=== PATIENT | female | born 1990 | race Caucasian/White ===

== ENCOUNTER 2024-07-05 08:03 | Emergency (ER) | payer OTHER, SELFPAY ==
[2024-07-05 08:11] VITALS: BP 121/73; PULSE 91; RESP 16; TEMP 36.6; O2SAT 100
--- OUTSIDE RECORDS SUMMARY | 2024-07-05 08:17 | XMS_ITS | Clinical Summary ---
Author Organization [facility] Address [address] [place] [address] Phone Care Team Providers Care Sewing Machine Operator Paper Bags Name Role Phone PADMINI CHO MD Primary Care Provider [phone] Reason for Visit and Chief Complaint NEW OB EXAM ESTABLISHED PATIENT Problems Includes: Problems addressed during this encounter and other active Problems Current Visit Onset Date Resolved Date Provider Stephanie n Status History of Abnormal Pap Smear 07/15/2021 Unknown ERICAKAITLIN RITCHIE WHNP-BC Resolved Last Documented On 03/04/2022 9:13AM ; [facility] Note: was Closed. History of Breast Disorders 07/15/2021 Unknown ERICAKAITLIN RITCHIE WHNP-BC Resolved Last Documented On 03/04/2022 9:13AM ; [facility] Note: was Closed. 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 History of Diabetes Mellitus 07/15/2021 Unknown ERICAKAITLIN RITCHIE WHNP-BC Resolved Last Documented On 03/04/2022 9:13AM ; [facility] Note: was Closed. History of Essential Hypertension 07/15/2021 Unknown ERICA A RITCHIE WHNP-BC Resolved Last Documented On 03/04/2022 9:13AM ; [facility] Note: was Closed. History of Heart Disease 07/15/2021 Unknown ERICAKAITLIN RITCHIE WHNP-BC Resolved Last Documented On 03/04/2022 9:13AM ; [facility] Note: was Closed. Reported Previous Std 07/15/2021 Unknown ERICAKAITLIN RITCHIE WHNP-BC Resolved Last Documented On 03/04/2022 9:13AM ; [facility] Note: was Closed. Respiratory Disorders 07/15/2021 Unknown ERICA RITCHIE WHNP-BC Resolved Last Documented On 03/04/2022 9:13AM ; [facility] Note: was Closed. 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 ERICA RITCHIE WHNP-BC Active Last Documented On 03/17/2017 10:53AM ; [facility] Note: H/O type I Plan of Treatment No Plan of Treatment Recorded Assessments Includes: Assessments from this encounter No Assessments Recorded Medical Equipment - Implanted Devices Includes: Current Devices No Medical Equipment Recorded Medications Includes: Medications discussed during this encounter and other current Medications Current Medications (continue as prescribed) [facility] Omeprazole 20 MG Oral Ta blet Delayed Release Disintegrating 06/20/2021 Provider: Diagnosis: Last Documented On 06/20/2021 11:06AM By Teresa Anguiano MA ; [facility] GNP 28-0.8 MG Oral Tablet 06/20/2021 Provid er: Diagnosis: Last Documented On 06/20/2021 11:06AM By Teresa Anguiano MA ; [facility] Medications Administered Includes: Administered Medications from this encounter No Administered Medications Recorded Vital Signs Includes: Vital Signs from this encounter Vital Name 07/15/2021 08:23A Blood Pressure Sitting (mmHg) 104/62 Temp-Temporal 98.7 Height (in) 65 Weight (lb) 173 Body Mass Index (kg/m2) 28.8 Body Surface Area (m2) 1.9 Last Documented: On 07/15/2021 9:10AM ; [facility] Results Includes: Results discussed during this encounter No Results Recorded For Specified Dates History of Present Illness Includes: History of Present Illness from this encounter ELHAM PAK is a 30 year old female. - Allergy list reviewed - Medication list reviewed Social History No Social History Recorded - Smoking Status Unknown Procedures and Surgical History Surgical History Last Updated History of surgery 07/15/2021 Last Documented On 2 9:10AM ; [facility] Medical History Includes: Medical History addressed during this encounter Description Last Updated History of Abnormal Pap Smear 07/15/2021 Last Documented On 2 9:10AM ; [facility] History of breast disorders 07/15/2021 Last Documented On 2 9:10AM ; [facility] History of congenital abnormality of kortney lucy 07/15/2021 Last Documented On 2 9:10AM ; [facility] History of heart disease 07/15/2021 Last Documented On 2 9:10AM ; [facility] Family History Includes: Family History addressed during this encounter No Family History Recorded Review of Systems Includes: Review of Systems from this encounter No Review of Systems Recorded Mental Status Includes: Mental Status from this encounter No Mental Status Recorded Functional Status Includes: Functional Status from this encounter No Functional Status Recorded Physical Exam Includes: Physical Exam from this encounter Allergies Includes: Active Allergies No Known Allergies Encounters Encounter Provider Location Date Check-In Time Check-Out Time Diagnosis NEW OB EXAM ESTABLISHED PATIENT TAB MENA MD [facility] 07/15/19 22 8:11AM 9:13AM Insurance Includes: Active Insurance Policies Plan Name Member ID Group # Subscriber Relationship Effect jomar Dates 1 - [facility] [id number] DANO PAK Self Clinical Notes Includes: Clinical Notes from this encounter No Clinical Notes Recorded
--- OUTSIDE RECORDS SUMMARY | 2024-07-05 08:17 | XMS_ITS | Clinical Summary ---
Author Organization [facility] Address [address] [place] [address] Phone Care Team Providers Care Chicken Stuffer Name Role Phone PADMINI CHO MD Primary Care Provider [phone] Reason for Visit and Chief Complaint RETURN OB EXAM Problems Includes: Problems addressed during this encounter and other active Problems Current Visit Onset Date Resolved Date Provider Barto n Status History of Abnormal Pap Smear 07/15/2021 Unknown ERICAKAITLIN RITCHIE WHNP-BC Resolved Last Documented On 03/04/2022 9:13AM ; [facility] Note: was Closed. History of Breast Disorders 07/15/2021 Unknown ERICA A RITCHIE WHNP-BC Resolved Last Documented On 03/04/2022 9:13AM ; [facility] Note: was Closed. 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 History of Heart Disease 07/15/2021 Unknown ERICA A RITCHIE WHNP-BC Resolved Last Documented On 03/04/2022 9:13AM ; [facility] Note: was Closed. 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 ERICAKAITLIN RITCHIE WHNP-BC Active Last Documented On 03/17/2017 10:53AM ; [facility] Note: H/O type I Plan of Treatment - Clinical summary provided to patient - Last Documented On 08/14/2021 9:52AM ; [facility] Pending Tests Order Diagnosis Results Due Ordering P rovider Ultrasound (OB) - U/S COMPLETE OB U/S >/= 14 WKS , SINGLE FETUS Encounter for other screening follow-up 08/14/21 ERICA A RITCHIE WHNP-BC Last Documented On 9:32AM ; [facility] Assessments Includes: Assessments from this encounter Findings - Routine checkup (6 - 42 wk) - Last Documented On 08/14/2021 9:52AM ; [facility] Medical Equipment - Implanted Devices Includes: Current Devices No Medical Equipment Recorded Medications Includes: Medications discussed during this encounter and other current Medications Current Medications (continue as prescribed) [facility] Omeprazole 20 MG Oral Ta blet Delayed Release Disintegrating 06/20/2021 Provider: Diagnosis: Last Documented On 06/20/2021 11:06AM By Teresa Anguiano MA ; [facility] GNP 28-0.8 MG Oral Tablet 06/20/2021 Provid er: Diagnosis: Last Documented On 06/20/2021 11:06AM By Teresa Anguiano MA ; [facility] Medications Administered Includes: Administered Medications from this encounter No Administered Medications Recorded Vital Signs Includes: Vital Signs from this encounter Vital Name 08/14/2021 09:41A Blood Pressure Sitting L 112/62 BP Cuff Size Regular Temp-Temporal 97.9 Weight (lb) 173 Last Documented: On 08/14/2021 9:52AM ; [facility] Results Includes: Results discussed during this encounter No Results Recorded For Specified Dates History of Present Illness Includes: History of Present Illness from this encounter No History of Present Illness Recorded Social History Description Last Updated Alcohol use occ 08/14/2021 Last Documented On 2 9:52AM ; [facility] Former smoker 08/14/2021 Last Documented On 2 9:52AM ; [facility] In monogamous relationship 08/14/2021 Last Documented On 2 9:52AM ; [facility] No travel 08/14/2021 Last Documented On 2 9:52AM ; [facility] Non-smoker 08/14/2021 Last Documented On 2 9:52AM ; [facility] Not using drugs 08/14/2021 Last Documented On 2 9:52AM ; [facility] Sexually active with 1 partners in the l ast year 08/14/2021 Last Documented On 2 9:52AM ; [facility] Smoking status : Current everyday smoker 08/14/2021 Last Documented On 2 9:52AM ; [facility] Social history changed 08/14/2021 Last Documented On 2 9:52AM ; [facility] Stopped smoking years ago 1 1/2 months a go. Stopped 08/14/2021 Last Documented On 2 9:52AM ; [facility] Procedures and Surgical History Surgical History Last Updated History of cholecystectomy 4-2-21, [facility] 0 08/14/2021 Last Documented On 2 9:52AM ; [facility] History of surgery cholecystectomy 08/14 Last Documented On 2 9:52AM ; [facility] Medical History Includes: Medical History addressed during this encounter Description Last Updated 1 08/14/2021 Last Documented On 2 9:52AM ; [facility] History of Abnormal Pap Smear 08/14/2021 Last Documented On 2 9:52AM ; [facility] History of breast disorders MGM breast c ancer 08/14/2021 Last Documented On 2 9:52AM ; [facility] 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 08/14/2021 Last Documented On 2 9:52AM ; [facility] History of heart disease PGF PGM MGF MGM ; FOB's dad PGF 08/14/2021 Last Documented On 2 9:52AM ; [facility] History of Pap smear done 03/18/2018 Last Documented On 2 9:52AM ; [facility] Last pap smear date 04/10/2021 2 Last Documented On 2 9:52AM ; [facility] LMP: 04/20/2021 08/14/2021 Last Documented On 2 9:52AM ; [facility] No exposure to a contagious disease 07/29 Last Documented On 2 9:52AM ; [facility] No recent change in medical history 07/29 Last Documented On 2 9:52AM ; [facility] Not using contraception 08/14/2021 Last Documented On 2 9:52AM ; [facility] Para 0 08/14/2021 Last Documented On 2 9:52AM ; [facility] Result: normal 08/14/2021 Last Documented On 2 9:52AM ; [facility] Sexually active 08/14/2021 Last Documented On 2 9:52AM ; [facility] Family History Includes: Family History addressed during [...] Location Date Check-In Time Check-Out Time Diagnosis RETURN OB EXAM ERICA RITCHIE [facility] 08/15/19 22 9:38AM 9:52AM Routine Checkup (6 - 42 Wk) Insurance Includes: Active Insurance Policies Plan Name Member ID Group # Subscriber Relationship Effect jomar Dates 1 - [facility] [id number] DANO PAK Self Clinical Notes Includes: Clinical Notes from this encounter No Clinical Notes Recorded
--- OUTSIDE RECORDS SUMMARY | 2024-07-05 08:17 | XMS_ITS | Clinical Summary ---
Author Organization [facility] Address [address] [place] [address] Phone Care Team Providers Care Manager Laboratory Name Role Phone PADMINI CHO MD Primary Care Provider [phone] Reason for Visit and Chief Complaint The Chief Complaint is: WWE, no c/o, she stopped smoking 1 1/2 months ago and they are trying to conceive. No new partners Problems Includes: Problems addressed during this encounter and other active Problems All Visits Onset Date Resolved Date Provider Condition S tatus Risk: Tobacco Use 03/18/2018 04/10/2021 ERICA RITCHIE WHNP -BC Resolved Last Documented On 1 9:49AM ; [facility] Herpes Simplex 03/17/2017 ERICA RITCHIE NP-BC Active Last Documented On 7 10:53AM ; [facility] Note: H/O type I Plan of Treatment - Clinical summary provided to patient - Last Documented On 04/10/2021 9:59AM ; [facility] Instructions to patient Instructions for patient : B reast Self Exam discussed Last Documented On 9:41AM ; [facility] Lose weight Last Documented On 9:43AM ; [facility] Education and Decision Aids were provided during visit for: Patient Education: Daily laura cium and vitamin D Last Documented On 9:41AM ; [facility] Patient Education: weight be aring exercise Last Documented On 9:41AM ; [facility] Assessments Includes: Assessments from this encounter Findings - NORMAL FEMALE EXAM [Z01.419 - Encounter for gynecological examination (general) (routine) without abnormal findings] - Last Documented On 04/10/2021 9:59AM ; [facility] Instructions Includes: Instructions from this encounter Instructions to patient Instructions for patient : B reast Self Exam discussed Last Documented On 1 9:41AM ; [facility] Lose weight Last Documented On 9:43AM ; [facility] Education and Decision Aids were provided during visit for: Patient Education: Daily laura cium and vitamin D Last Documented On 9:41AM ; [facility] Patient Education: weight be aring exercise Last Documented On 9:41AM ; [facility] Medical Equipment - Implanted Devices Includes: Current Devices No Medical Equipment Recorded Medications Includes: Medications discussed during this encounter and other current Medications Discontinued / Stopped on this date ERICA Stevens [facility]MA WHNP-BC on 04/08/2020 NuvaRing 0.12-0.015 MG/24HR Vaginal Ring Provider: ERICA RITCHIE WHNP-BC Diagnosis: Last Documented On 04/10/2021 9:46AM By Teresa Anguiano MA ; [facility] Current Medications (continue as prescribed) [facility] Omeprazole 20 MG Oral Ta blet Delayed Release Disintegrating 06/20/2021 Provider: Diagnosis: Last Documented On 06/20/2021 11:06AM By Teresa Anguiano MA ; [facility] GNP 28-0.8 MG Oral Tablet 06/20/2021 Provid er: Diagnosis: Last Documented On 06/20/2021 11:06AM By Teresa Anguiano MA ; [facility] Medications Administered Includes: Administered Medications from this encounter No Administered Medications Recorded Vital Signs Includes: Vital Signs from this encounter Vital Name 04/10/2021 09:44A 04/10/2021 09: 44A Temp-Oral (F) 97.2 Height (in) 65 Weight (lb) 172 Body Mass Index (kg/m2) 28.6 Body Surface Area (m2) 1.9 Blood Pressure Sitting L 102/64 BP Cuff Size Large Last Documented: On 04/10/2021 9:44AM ; [facility] On 04/10/2021 9:46AM ; [facility] Results Includes: Results discussed during this encounter No Results Recorded For Specified Dates History of Present Illness Includes: History of Present Illness from this encounter ELHAM PAK is a 30 year old female. - Allergy list reviewed - Medication list reviewed - Primary Care Provider: Dr Alegria Social History Description Last Updated Former smoker 04/10/2021 Last Documented On 1 9:59AM ; [facility] Stopped smoking years ago 1 1/2 months a go. Stopped 04/10/2021 Last Documented On 1 9:59AM ; [facility] Social history changed 04/10/2021 Last Documented On 1 9:59AM ; [facility] Alcohol use occ 04/10/2021 Last Documented On 1 9:59AM ; [facility] In monogamous relationship 04/10/2021 Last Documented On 1 9:59AM ; [facility] No travel 04/10/2021 Last Documented On 1 9:59AM ; [facility] Non-smoker 04/10/2021 Last Documented On 1 9:59AM ; [facility] Not using drugs 04/10/2021 Last Documented On 1 9:59AM ; [facility] Sexually active with 1 partners in the l ast year 04/10/2021 Last Documented On 1 9:59AM ; [facility] Smoking status : Current everyday smoker 04/10/2021 Last Documented On 1 9:59AM ; [facility] Procedures and Surgical History Includes: Procedures from this encounter Procedures Code Diagnosis Performing Provider Service L ocation Service Date low fat diet Last Documented On 1 9:43AM ; [facility] use of tobacco assessment performed 1000F Last Documented On 1 9:48AM ; [facility] history of cervical Pap smear 2017 34293 Last Documented On 1 9:48AM ; [facility] Cervical Pap Smear performed Q0091 Last Documented On 1 9:42AM ; [facility] Surgical History Last Updated History of cholecystectomy 4-2-21, [facility] 1 06/10/2020 Last Documented On 1 9:59AM ; [facility] Medical History Includes: Medical History addressed during this encounter Description Last Updated Last pap smear date 201704/10/2021 Last Documented On 1 9:59AM ; [facility] LMP: 03/25/2021 04/10/2021 Last Documented On 1 9:59AM ; [facility] Not using contraception 04/10/2021 Last Documented On 1 9:59AM ; [facility] Contraception: nuva ring 04/10/2021 Last Documented On 1 9:59AM ; [facility] 0 04/10/2021 Last Documented On 1 9:59AM ; [facility] History of Pap smear done 03/18/201803/2021 Last Documented On 1 9:59AM ; [facility] No exposure to a contagious disease 03/31 Last Documented On 1 9:59AM ; [facility] No recent change in medical history 03/31 Last Documented On 1 9:59AM ; [facility] Result: normal 04/10/2021 Last Documented On 1 9:59AM ; [facility] Sexually active 04/10/2021 Last Documented On 1 9:59AM ; [facility] Family History Includes: Family History addressed during this encounter Description Last Updated Maternal aunt's history of hypertension mgf 04/06/2019 Last Documented On 1 9:44AM ; [facility] Maternal grandmother's history of family history of heart disease mgm.mgf 04/06/2019 Last Documented On 1 9:44AM ; [facility] Maternal grandmother's history of malign ant female breast neoplasm mgm 04/06/2019 Last Documented On 1 9:44AM ; [facility] Paternal history of diabetes mellitus fa ther and all his side 04/06/2019 Last Documented On 1 9:44AM ; [facility] Family history unchanged 04/06/2019 Last Documented On 1 9:44AM ; [facility] Review of Systems Includes: Review of Systems from this encounter Gastrointestinal: No pelvic pain. Genitourinary: No menorrhagia. No dysmenorrhea and no bleeding between periods. No vaginal discharge. Mental Status Includes: Mental Status from this encounter No Mental Status Recorded Functional Status Includes: Functional Status from this encounter No Functional Status Recorded Physical Exam Includes: Physical Exam from this encounter Allergies Includes: Active Allergies No Known Allergies Encounters Encounter Provider Location Date Check-In Time Check-Out Time Diagnosis WELL WOMAN - ESTABLISHED PT ERICA RITCHIE [facility] 04/10/20 21 9:39AM 10:01AM Normal Female Exam Insurance Includes: Active Insurance Policies Plan Name Member ID Group # Subscriber Relationship Effect jomar Dates 1 - [facility] [id number] DANO PAK Self Clinical Notes Includes: Clinical Notes from this encounter No Clinical Notes Recorded
--- OUTSIDE RECORDS SUMMARY | 2024-07-05 08:17 | XMS_ITS | Clinical Summary ---
Author Organization [facility] Address [address] [place] [address] Phone Care Team Providers Care Minister Assistant Name Role Phone PADMINI CHO MD Primary Care Provider [phone] Reason for Visit and Chief Complaint The Chief Complaint is: Patient is here for a missed menses. Her LMP was 04-20-21 Problems Includes: Problems addressed during this encounter and other active Problems All Visits Onset Date Resolved Date Provider Condition S tatus Herpes Simplex 03/17/2017 ERICA RITCHIE NP-BC Active Last Documented On 03/17/2017 10:53AM ; [facility] Note: H/O type I Plan of Treatment - Clinical summary provided to patient - Last Documented On 06/20/2021 11:37AM ; [facility] Pending Tests Order Diagnosis Results Due Ordering P rovider Injections Immunization Injection #1 (for over 18) Encounter for immunization 06/20/21 ERICA RITCHIE NP-BC Last Documented On 2 11:37AM ; [facility] Injections Theraputic Injection Encounter f or immunization 06/20/21 ERICA RITCHIE NP-BC Last Documented On 2 11:37AM ; [facility] Education and Decision Aids were provided during visit for: New OB form given to patient SAB precautions reviewed and pnv samples given. Advised H1N1 and seasonal flu vaccine and covid vaccine per ACOG and CDC guidelines. Covid vaccinated already x 2! Flu vaccine today! Last Documented On 2 11:25AM ; [facility] Assessments Includes: Assessments from this encounter Findings - Amenorrhea [N91.2 - Amenorrhea, unspecified] 8 5/7 weeks by LMP with EDC 01-27-22 - Last Documented On 06/20/2021 11:37AM ; [facility] Instructions Includes: Instructions from this encounter Education and Decision Aids were provided during visit for: New OB form given to patient SAB precautions reviewed and pnv samples given. Advised H1N1 and seasonal flu vaccine and covid vaccine per ACOG and CDC guidelines. Covid vaccinated already x 2! Flu vaccine today! Last Documented On 2 11:25AM ; [facility] Medical Equipment - Implanted Devices Includes: Current Devices No Medical Equipment Recorded Medications Includes: Medications discussed during this encounter and other current Medications Current Medications (continue as prescribed) [facility] Omeprazole 20 MG Oral Ta blet Delayed Release Disintegrating 06/20/2021 Provider: Diagnosis: Last Documented On 06/20/2021 11:06AM By Teresa Anguiano MA ; [facility] GNP 28-0.8 MG Oral Tablet 06/20/2021 Provid er: Diagnosis: Last Documented On 06/20/2021 11:06AM By Teresa Anguiano MA ; [facility] Medications Administered Includes: Administered Medications from this encounter No Administered Medications Recorded Vital Signs Includes: Vital Signs from this encounter Vital Name 06/20/2021 11:01A Blood Pressure Sitting L 108/66 BP Cuff Size Regular Temp-Temporal 98.4 Height (in) 65 Weight (lb) 172 Body Mass Index (kg/m2) 28.6 Body Surface Area (m2) 1.9 Last Documented: On 06/20/2021 11:09A M ; [facility] Results Includes: Results discussed during this encounter LIQUID BASED PAP W HPV [facility] Laboratory Ordered by ERICA DICKERSON on 04/10/[address] [place] [address], [id number] Collected: 04/10/2021 Report ed: 04/16/2021 18:38 tel: Last Documented On 1 6:14AM ; [facility] Reviewed by ERICA IRVIN on 04/17/2021; All test results are final unless otherwise noted. HPV mRNA E6/E7 Not Detected (Not Detected) N (Normal) Last Documented On 1 7:17PM ; [facility] Note: Methodology: Tree Warden-Mediate d AmplificationThis assay detects E6/E7 viral messenger RNA (mRNA) from 14high-risk HPV types (16,18,31,33,35,39,45,51,52,56,58,59,66,68).The analytical performance characteristics of thisassay have been determined by [employer].The modifications have not been cleared or approvedby the FDA. This assay has been validated pursuantto the CLIA regulations and is used forclinical purposes.For additional information, please refer tohttp://education.[employer]/faq/VCA138p1(This link if provided for information/educational purposes only.)THIS TEST WAS PERFORMED AT:[employer] [id number] [place] [address]SFXUEGR BECKER,DO,MPHEXPLANATORY NOTE:The Pap is a screening test for cervical cancer. It isnot a diagnostic test and is subject to false negativeand false positive results. It is most reliable when asatisfactory sample, regularly obtained, is submittedwith relevant clinical findings and history, and whenthe Pap result is evaluated along with historic andcurrent clinical information.THIS TEST WAS PERFORMED AT:[employer] [place] [address] [place] [address]ZOIO-WKIH ,MDResponsible Observer: (rfl) LIQUID BASED PAP W HPV See Note None Last Documented On 1 7:17PM ; [facility] Note: Information not /26/2120 18 RTNInformation not providedCervix, EndocervixSatisfactory for evaluation.Endocervical/transformation zone componentpresent.Negative for intraepithelial lesion or malignancy.This Pap test has been evaluated with computerassisted technology.AMW, CT(ASCP)CT screening location: [place] [address] Fu [id number] Observer: (ARC) PAP SMEAR ABNORMAL? NO None Last Documented On 1 7:17PM ; [facility] Note: Responsible Observer: (ARC) Urine HCG [facility] Collected: Reported: 06/20/2021 11:17 Last Documented On 2 11:18AM ; [facility] Reviewed on 06/20/2021; All test results are final unless otherwise noted. Urine UCG Abnormal A (Abnormal) Last Documented On 2 11:17AM ; [facility] INT. QC ACCEPTABLE? yes A (Abnormal) Last Documented On 2 11:17AM ; [facility] LOT # & EXP. DATE [id number] 10-28-22 A (Abnormal) Last Documented On 2 11:17AM ; [facility] History of Present Illness Includes: History of Present Illness from this encounter ELHAM PAK is a 30 year old female. - Allergy list reviewed - Medication list reviewed - Primary Care Provider: Dr Alegria Social History Description Last Updated Alcohol use occ 06/20/2021 Last Documented On 2 11:37AM ; [facility] Former smoker 06/20/2021 Last Documented On 2 11:37AM ; [facility] In monogamous relationship 06/20/2021 Last Documented On 2 11:37AM ; [facility] No travel 06/20/2021 Last Documented On 2 11:37AM ; [facility] Not using drugs 06/20/2021 Last Documented On 2 11:37AM ; [facility] Sexually active with 1 partners in the l ast year 06/20/2021 Last Documented On 2 11:37AM ; [facility] Social history changed 06/20/2021 Last Documented On 2 11:37AM ; [facility] Smoking Status Unknown Procedures and Surgical History Includes: Procedures from this encounter Procedures Code Diagnosis Performing Provider Service L ocation Service Date use of tobacco assessment performed 1000F Last Documented On 2 11:07AM ; [facility] review of medications documented 1160F Last Documented On 2 11:07AM ; [facility] an HCG test was positive 75517 Last Documented On 2 11:04AM ; [facility] history of cervical Pap smear 04/10/2021 25200 Last Documented On 2 11:07AM ; [facility] Chlamydia trachomatis culture was perfor med Last Documented On 2 11:04AM ; [facility] Neisseria gonorrhea culture was performe d Last Documented On 2 11:04AM ; [facility] Surgical History Last Updated History of cholecystectomy 4-2-21, [facility] 0 06/20/2021 Last Documented On 2 11:37AM ; [facility] Medical History Includes: Medical History addressed during this encounter Description Last Updated 1 06/20/2021 Last Documented On 2 11:37AM ; [facility] Para 0 06/20/2021 Last Documented On 2 11:37AM ; [facility] Last pap smear date 04/10/2021 2 Last Documented On 2 11:37AM ; [facility] LMP: 04/20/2021 06/20/2021 Last Documented On 2 11:37AM ; [facility] History of Pap smear done 03/18/2018 Last Documented On 2 11:37AM ; [facility] No exposure to a contagious disease 06/01 Last Documented On 2 11:37AM ; [facility] No recent change in medical history 06/01 Last Documented On 2 11:37AM ; [facility] Not using contraception 06/20/2021 Last Documented On 2 11:37AM ; [facility] Result: normal 06/20/2021 Last Documented On 2 11:37AM ; [facility] Sexually active 06/20/2021 Last Documented On 2 11:37AM ; [facility] Family History Includes: Family History addressed during this encounter No Family History Recorded Review of Systems Includes: Review of Systems from this encounter Systemic: Not feeling poorly (malaise). No recent weight change. Head: No headache. Eyes: No vision problems. Breasts: No pain in breast. Pulmonary: No cough. Gastrointestinal: Normal appetite, no dysphagia, and no heartburn. No nausea, no vomiting, no abdominal pain, and no melena. No diarrhea. No pelvic pain. Genitourinary: No dysuria. No vaginal discharge. Psychological: No anxiety and no depression. Skin: No skin lesions. Mental Status Includes: Mental Status from this encounter Description No anxiety Functional Status Includes: Functional Status from this encounter No Functional Status Recorded Physical Exam Includes: Physical Exam from this encounter Immunizations Includes: Immunizations addressed during this encounter Vaccine Dose # Date Site Reaction(s) Status Source Influenza (Quadrivalent) PF 0.5ml 1 06/20/2021 Right Deltoid Complete (Administered) [facility] Last Documented On 2 11:28AM ; [facility] Allergies Includes: Active Allergies No Known Allergies Encounters Encounter Provider Location Date Check-In Time Check-Out Time Diagnosis MISSED MENSES - ESTABLISHED PT ERICA RITCHIE [facility] 06/20/19 22 10:57AM 11:27AM Amenorrhea Insurance Includes: Active Insurance Policies Plan Name Member ID Group # Subscriber Relationship Effect jomar Dates 1 - [facility] [id number] DANO PAK Self Clinical Notes Includes: Clinical Notes from this encounter No Clinical Notes Recorded
--- NOTE | 2024-07-05 08:18 | ED_ITS ---
HPI - URI/Sore Throat General Chief Complaint: Upper Respiratory Infection Stated Complaint: Sore Throat Time Seen by Provider: 07/05/24 08:20 Source: patient, RN notes reviewed and old records reviewed Mode of arrival: ambulatory Limitations: no limitations History of Present Illness HPI Narrative: 33-year-old female who presents to [facility] with complaints of sore throat which started last night. Patient has enlarged tonsils with white exudates noted with history of strep throat in the past. Ptient reports no fever or any body aches or cough. Patient has not taken any OTC medication for her discomfort. MD elicited complaint: sore throat Pertinent past history: other (History of strep throat) Onset (ago): day(s) (1) Pain scale (0-10): 3 Able to tolerate fluids by mouth: Yes Exacerbating factors: swallowing Treatments prior to arrival: none Related Data Home Medications ?Medication ?Instructions ?Recorded ?Confirmed ?Last Taken ?Type etonogestrel 0.12 mg-ethinyl vag ring vaginal 07/05/24 Unknown History estradiol 0.015 mg/24 hr vaginal ring Allergies Allergy/AdvReac Type Severity Reaction Status Date / Time No Known Allergies Allergy Verified 07/05/24 08:15 Review of Systems Review of Systems: CONSTITUTIONAL: Denies malaise, chills, sweats, or fever. EYES: Denies visual changes, redness, or discharge. ENT: Reports rhinorrhea, congestion,no sinus pain, no otalgia and positive for sore throat. CARDIOVASCULAR: Denies chest pain, palpitations, or edema. RESPIRATORY: Reports no cough.? Denies dyspnea. GASTROINTESTINAL: Denies abdominal pain, nausea, vomiting, diarrhea SKIN: Denies rash or itching. MUSCULOSKELETAL: Denies myalgia. NEUROLOGIC: Denies headache. All systems reviewed & are unremarkable except as noted in HPI and below PMFSH Past Medical History Medical History (Updated 07/06/24 @ 00:01 by Daiana Atwood) Strep pharyngitis Social History Social History (Updated 07/05/24 @ 08:34 by Meenu Adams NP) Smoking status: Current every day smoker Tobacco type: e-cigarettes/vaping Alcohol intake: current Alcohol use details: social Substance use type: does not use Living arrangements: with family Gender identity (if verbalized by the patient): Female Comments At time of signature, agree with nursing past medical, surgical, social and family history. There is no relevant family history pertinent to the presenting complaint Exam Narrative: GENERAL: Well-appearing, well-nourished, and in no acute distress. HEAD: Normocephalic EYES: PERRLA, conjunctivae clear ENT: Nares clear, turbinates edematous and erythematous, clear discharge. Mucous membranes moist. TM pearly vences with dull light reflex bilaterally; no tragal tenderness. Oropharynx erythematous without lesions. Tonsils red enlarged and with white exudate, no drooling, no hoarseness, no trismus, uvula midline. NECK: Supple. positive for lymphadenopathy CHEST: Clear to auscultation, breath sounds equal. No wheezing, rhonchi, rales, or stridor. No respiratory distress, speaks in full sentences.SAO2 100% n room air HEART: Regular rate and rhythm. No murmur heard. SKIN: Warm, dry, no rash. NEURO: Alert and oriented x3. PSYCH: Normal mood and affect Course Course Emergency Course: Patient is aware of diagnosis, understands and agrees to treatment plan.? Anticipatory guidance given.? Patient agrees to follow-up as directed and is aware of reasons to seek care at the emergency department. Portions of this record may have been created with voice recognition software Level of Care: Express Care Visit Vital Signs Vital signs: Vital Signs Temperature 36.6 C 07/05/24 08:11 Pulse Rate 91 07/05/24 08:11 Respiratory Rate 16 07/05/24 08:11 Blood Pressure 121/73 07/05/24 08:11 Pulse Oximetry 100 07/05/24 08:11 Oxygen Delivery Room Air 07/05/24 08:11 Temperature 36.6 C 07/05/24 08:11 Pulse Rate 91 07/05/24 08:11 Respiratory Rate 16 07/05/24 08:11 Blood Pressure 121/73 07/05/24 08:11 Pulse Oximetry 100 07/05/24 08:11 Oxygen Delivery Room Air 07/05/24 08:11 Reviewed MDM - URI/Sore Throat MDM Narrative Medical decision making narrative: Differential diagnosis considered: Dill virus, strep pharyngitis, allergic rhinitis, upper respiratory tract infection, sinusitis, rhinosinusitis, nasopharyngitis. viral pharyngitis, otitis media, otitis externa, pneumonia, bronchitis, viral cough syndrome, viral syndrome, and influenza.? Exam findings show no acute concerns or changes; patient is non-toxic appearing and is in no distress.? Patient is appropriate for outpatient treatment and follow-up. Differential Diagnosis Differential diagnosis: Likely upper respiratory infection, sinusitis, viral infection, pharyngitis and other (strep pharyngitis, acute tonsillitis) Medical Records Attestation: I reviewed the patient's medical records. Lab Data Attestation: I reviewed the patient's lab results. Lab results narrative: strep screen negative, culture sent, Influenza A negative, Influenza B negative, COVID antigen negative Labs: Lab Results 07/05/24 07/05/24 Range/Units 08:26 08:41 POC Influenza A Ag Negative (Negative) POC Influenza B Ag Negative (Negative) POC SARS CoV-2 Ag Negative (Negative) POC Grp A Strep Screen Negative (Negative) Critical Care Time Critical Care Time Critical Care Time: No Discharge Plan Discharge Clinical Impression: Exudative tonsillitis Patient Disposition: Home, Self-Care Condition: Stable Instructions: Antibiotic Form, Tonsillitis (ED) Additional Instructions: . Take the entire course of antibiotics. Throw away your current toothbrush and begin using a new toothbrush in 48 hours in order to prevent re-infection. Sanitize all reusable water bottles . Do not share items with others. Salt water gargles may alleviate some of the throat discomfort. You can take Tylenol or ibuprofen per the package instructions for pain/fever. Strep culture sent Mucinex for any cough Zyrtec Claritin or Christiana daily for any nasal drainage If your symptoms persist, change or worsen significantly before you can contact your personal physician then please, without delay, go to the emergency department for further evaluation. Follow-up with PCP in 7-10 days or sooner if needed Patient Language: Iranian Prescriptions: New amoxicillin 875 mg tablet 875 mg PO Q12H Qty: 20 0RF Rx Instructions: Take all doses of medication No Action etonogestrel-ethinyl estradiol 0.12-0.015 mg/24 hr ring VAGINAL Follow-up/Referrals: Khushboo,Martha Melgar GRINDER OPERATOR AUTOMATIC [Primary Care Provider] - Time of Disposition: 08:48 Quality Fredo Coma Scale Eyes: Open Verbal: Oriented and Alert Motor: Follows Commands Fredo Coma Total Score: 15
--- OUTSIDE RECORDS SUMMARY | 2024-07-05 08:18 | XMS_ITS ---
Author Organization [facility] Address [address] [place] [address] Phone Care Team Providers Care Floor Scrubber Name Role Phone PADMINI CHO MD Primary Care Provider [phone] Problems Includes: Active, inactive, and resolved Problems All Visits Onset Date Resolved Date Provider Condition S tatus History of Abnormal Pap Smear 07/15/2021 Unknown ERICAKAITLIN RITCHIE WHNP-BC Resolved Last Documented On 03/04/2022 9:13AM ; [facility] Note: was Closed. History of Breast Disorders 07/15/2021 Unknown ERICAKAITLIN RITCHIE WHNP-BC Resolved Last Documented On 03/04/2022 9:13AM ; [facility] Note: was Closed. 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 History of Diabetes Mellitus 07/15/2021 Unknown ERICAKAITLIN RITCHIE WHNP-BC Resolved Last Documented On 03/04/2022 9:13AM ; [facility] Note: was Closed. History of Essential Hypertension 07/15/2021 Unknown ERICA A RITCHIE WHNP-BC Resolved Last Documented On 03/04/2022 9:13AM ; [facility] Note: was Closed. History of Heart Disease 07/15/2021 Unknown ERICA A RITCHIE WHNP-BC Resolved Last Documented On 03/04/2022 9:13AM ; [facility] Note: was Closed. Reported Previous Std 07/15/2021 Unknown ERICA A RITCHIE WHNP-BC Resolved Last Documented On 03/04/2022 9:13AM ; [facility] Note: was Closed. Respiratory Disorders 07/15/2021 Unknown ERICA A RITCHIE WHNP-BC Resolved Last Documented On 03/04/2022 9:13AM ; [facility] Note: was Closed. 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 ERICA RITCHIE WHNP-BC Active Last Documented On 7 10:53AM ; [facility] Note: H/O type I Plan of Treatment Findings Encounter Date Ordered Clinical summary pro vided to patient RETURN OB EXAM with ERICA RITCHIE WHNP-BC 09/25/2021 Last Documented On 2 8:47AM ; [facility] Ordered Clinical summary pro vided to patient RETURN OB EXAM with ERICA RITCHIE WHNP-BC 08/14/2021 Last Documented On 2 9:52AM ; [facility] Ordered Clinical summary pro vided to patient MISSED MENSES - ESTABLISHED PT with ERICA RITCHIE WHNP-BC 06/20/2021 Last Documented On 2 11:37AM ; [facility] Ordered Clinical summary pro vided to patient WELL WOMAN - ESTABLISHED PT with ERICA RITCHIE WHNP-BC 04/10/2021 Last Documented On 1 9:59AM ; [facility] The options include close observation SI CK VISIT with ASHER TINAJERO [facility] 04/15/2020 Last Documented On 0 2:49PM ; [facility] Watch for signs/symptoms of infection, return to the clinic if seen SICK VISIT with ASHER TINAJERO [facility] 04/15/2020 Last Documented On 0 2:49PM ; [facility] Ordered Clinical summary pro vided to patient WELL WOMAN - ESTABLISHED PT with ERICA RITCHIE WHNP-BC 04/08/2020 Last Documented On 0 9:40AM ; [facility] Ordered Clinical summary pro vided to patient METAL SORTER EXAM with ERICA RITCHIE WHNP-BC 04/06/2019 Last Documented On 9 9:03AM ; [facility] Ordered Clinical summary pro vided to patient METAL SORTER EXAM with ERICA RITCHIE WHNP-BC 03/18/2018 Last Documented On 8 10:32AM ; [facility] Ordered Clinical summary pro vided to patient PROBLEM VISIT with ERICA RITCHIE [facility] 04/15/2017 Last Documented On 7 8:45AM ; [facility] Ordered Clinical summary pro vided to patient NEW METAL SORTER EXAM with ERICA RITCHIE [facility] 03/17/2017 Last Documented On 7 11:20AM ; [facility] Instructions to patient Instructions for patient : B reast Self Exam discussed Last Documented On 1 9:41AM ; [facility] Lose weight Last Documented On 1 9:43AM ; [facility] Watch for signs/symptoms of infection, return to the clinic if seen Last Documented On 0 2:42PM ; [facility] Instructions for patient : B reast Self Exam discussed Last Documented On 0 9:29AM ; [facility] Lose weight Last Documented On 0 9:30AM ; [facility] Instructions for patient : B reast Self Exam discussed Last Documented On 9 8:50AM ; [facility] Lose weight Last Documented On 9 8:51AM ; [facility] Safe sex counseling Last Documented On 9 8:51AM ; [facility] Instructions for patient : B reast Self Exam discussed Last Documented On 8 10:15AM ; [facility] Safe sex counseling Last Documented On 8 10:15AM ; [facility] Instructions For Patient: pe lvic rest until test results back Last Documented On 7 8:34AM ; [facility] Instructions for patient : B reast Self Exam discussed Last Documented On 7 10:41AM ; [facility] Gardasil information given a nd series encouraged Last Documented On 7 10:41AM ; [facility] Safe sex counseling Last Documented On 7 10:41AM ; [facility] Education and Decision Aids were provided during visit for: New OB form given to patient SAB precautions reviewed and pnv samples given. Advised H1N1 and seasonal flu vaccine and covid vaccine per ACOG and CDC guidelines. Covid vaccinated already x 2! Flu vaccine today! Last Documented On 2 11:25AM ; [facility] Patient Education: Daily laura cium and vitamin D Last Documented On 1 9:41AM ; [facility] Patient Education: weight be aring exercise Last Documented On 1 9:41AM ; [facility] Patient Education: Daily laura cium and vitamin D Last Documented On 0 9:29AM ; [facility] Patient Education: weight be aring exercise Last Documented On 0 9:29AM ; [facility] Smoking cessation advised Last Documented On 0 9:30AM ; [facility] Patient Education: Daily laura cium and vitamin D Last Documented On 9 8:50AM ; [facility] Patient Education: weight be aring exercise Last Documented On 9 8:50AM ; [facility] Smoking cessation advised Last Documented On 9 8:53AM ; [facility] Patient Education: Daily laura cium and vitamin D Last Documented On 8 10:15AM ; [facility] Patient Education: weight be aring exercise Last Documented On 8 10:15AM ; [facility] Smoking cessation advised Last Documented On 8 10:21AM ; [facility] Patient counseling : STD pre vention. I discussed with the patient that condoms can reduce the chance of getting an STD but not eliminate it. Increased exposure from multiple sex partners also discussed Last Documented On 7 8:34AM ; [facility] HIV counseling given Last Documented On 7 8:34AM ; [facility] Patient Education: Daily laura cium and vitamin D Last Documented On 7 10:41AM ; [facility] Patient Education: weight be aring exercise Last Documented On 7 10:41AM ; [facility] Smoking cessation advised Last Documented On 7 10:53AM ; [facility] Assessments Includes: Assessments for all patient encounters Findings Encounter Date Routine checkup (6 - 42 wk) RET URN OB EXAM with ERICA MADERA 09/25/2021 Last Documented On 2 8:47AM ; [facility] Routine checkup (6 - 42 wk) RET URN OB EXAM with ERICA RITCHIE [facility] 08/14/2021 Last Documented On 2 9:52AM ; [facility] Amenorrhea 8 5/7 weeks by FARHAN P with EDC 01-27-22 MISSED MENSES - ESTABLISHED PT with ERICA RITCHIE [facility] 06/20/2021 Last Documented On 2 11:37AM ; [facility] NORMAL FEMALE EXAM WELL WOMAN - ESTABLISHED PT w ramona RITCHIE [facility] 04/10/2021 Last Documented On 1 9:59AM ; [facility] Assessment of cough SICK VISIT with ASHER Stevens [facility] 04/15/2020 Last Documented On 0 2:49PM ; [facility] Visit for: exposure to biolo gical agent suspected [Encounter for observation for suspected exposure to other biological agents ruled out] SICK VISIT with ASHER Rodney TINAJERO [facility] 04/15/2020 Last Documented On 0 2:49PM ; [facility] NORMAL FEMALE EXAM WELL WOMAN - ESTABLISHED PT w ramona RITCHIE [facility] 04/08/2020 Last Documented On 0 9:40AM ; [facility] NORMAL FEMALE EXAM METAL SORTER EXAM with ERICA Elizabeth [facility] 04/06/2019 Last Documented On 9 9:03AM ; [facility] NORMAL FEMALE EXAM METAL SORTER EXAM with ERICA Elizabeth [facility] 03/18/2018 Last Documented On 8 10:32AM ; [facility] Cervicitis chlamydia trachomatis PROBLEM VISIT w ramona RITCHIE [facility] 04/15/2017 Last Documented On 7 8:45AM ; [facility] NORMAL FEMALE EXAM NEW METAL SORTER EXAM with ERICA HINSON BAL [facility] 03/17/2017 Last Documented On 7 11:20AM ; [facility] Instructions Includes: Instructions for all patient encounters Instructions to patient Instructions for patient : B reast Self Exam discussed Last Documented On 1 9:41AM ; [facility] Lose weight Last Documented On 1 9:43AM ; [facility] Watch for signs/symptoms of infection, return to the clinic if seen Last Documented On 0 2:42PM ; [facility] Instructions for patient : B reast Self Exam discussed Last Documented On 0 9:29AM ; [facility] Lose weight Last Documented On 0 9:30AM ; [facility] Instructions for patient : B reast Self Exam discussed Last Documented On 9 8:50AM ; [facility] Lose weight Last Documented On 9 8:51AM ; [facility] Safe sex counseling Last Documented On 9 8:51AM ; [facility] Instructions for patient : B reast Self Exam discussed Last Documented On 8 10:15AM ; [facility] Safe sex counseling Last Documented On 8 10:15AM ; [facility] Instructions For Patient: pe lvic rest until test results back Last Documented On 7 8:34AM ; [facility] Instructions for patient : B reast Self Exam discussed Last Documented On 7 10:41AM ; [facility] Gardasil information given a nd series encouraged Last Documented On 7 10:41AM ; [facility] Safe sex counseling Last Documented On 7 10:41AM ; [facility] Education and Decision Aids were provided during visit for: New OB form given to patient SAB precautions reviewed and pnv samples given. Advised H1N1 and seasonal flu vaccine and covid vaccine per ACOG and CDC guidelines. Covid vaccinated already x 2! Flu vaccine today! Last Documented On 2 11:25AM ; [facility] Patient Education: Daily laura cium and vitamin D Last Documented On 1 9:41AM ; [facility] Patient Education: weight be aring exercise Last Documented On 1 9:41AM ; [facility] Patient Education: Daily laura cium and vitamin D Last Documented On 0 9:29AM ; [facility] Patient Education: weight be aring exercise Last Documented On 0 9:29AM ; [facility] Smoking cessation advised Last Documented On 0 9:30AM ; [facility] Patient Education: Daily laura cium and vitamin D Last Documented On 9 8:50AM ; [facility] Patient Education: weight be aring exercise Last Documented On 9 8:50AM ; [facility] Smoking cessation advised Last Documented On 9 8:53AM ; [facility] Patient Education: Daily laura cium and vitamin D Last Documented On 8 10:15AM ; [facility] Patient Education: weight be aring exercise Last Documented On 8 10:15AM ; [facility] Smoking cessation advised Last Documented On 8 10:21AM ; [facility] Patient counseling : STD pre vention. I discussed with the patient that condoms can reduce the chance of getting an STD but not eliminate it. Increased exposure from multiple sex partners also discussed Last Documented On 7 8:34AM ; [facility] HIV counseling given Last Documented On 7 8:34AM ; [facility] Patient Education: Daily laura cium and vitamin D Last Documented On 7 10:41AM ; [facility] Patient Education: weight be aring exercise Last Documented On 7 10:41AM ; [facility] Smoking cessation advised Last Documented On 7 10:53AM ; [facility] Medical Equipment - Implanted Devices Includes: Current and historical Devices No Medical Equipment Recorded Medications Includes: Current and historical Medications Current Medications (continue as prescribed) [facility] Omeprazole 20 MG Oral Ta blet Delayed Release Disintegrating 06/20/2021 Provider: Diagnosis: Last Documented On 06/20/2021 11:06AM By Teresa Anguiano MA ; [facility] GNP 28-0.8 MG Oral Tablet 06/20/2021 Provid er: Diagnosis: Last Documented On 06/20/2021 11:06AM By Teresa Anguiano MA ; [facility] Past Medications on file NuvaRing 0.12-0.015 MG/24HR Vaginal Ring 04/08/2020 - 04/10/2021 Provider: ERICA THOMPSON IMPORT COORDINATOR-BC Diagnosis: Insert for 3 weeks then remove for 1 week Last Documented On 04/10/2021 9:46AM By Teresa Anguiano MA ; [facility] NuvaRing 0.12-0.015 MG/24HR Vaginal Ring 04/06/2019 - 04/08/2020 Provider: ERICA IRVIN Diagnosis: Insert for 3 weeks then remove for 1 week Last Documented On 0 9:40AM By ERICA MADERA ; [facility] NuvaRing 0.12-0.015MG/24HR Vaginal Ring 06/08/2018 - 04/06/2019 Provider: ERICA MADERA Diagnosis: Insert for 3 weeks then remove for 1 week Last Documented On 9 8:56AM By ERICA MADERA ; [facility] NuvaRing 0.12-0.015MG/24HR Vaginal Ring 03/18/2018 - 06/08/2018 Provider: ERICA MADERA Diagnosis: Insert for 3 weeks then remove for 1 week Last Documented On 9 10:34AM By ERICA MADERA ; [facility] NuvaRing 0.12-0.015MG/24HR Vaginal Ring 04/15/2017 - 03/18/2018 Provider: ERICA MADERA Diagnosis: Insert for 3 weeks then remove for 1 week Last Documented On 8 10:31AM By ERICA MADERA ; [facility] Zithromax 1GM Oral Packet 03/23/2017 - 03/18/2018 Prov ider: Diagnosis: Last Documented On 8 10:21AM By ERICA MADERA ; [facility] NuvaRing 0.12-0.015MG/24HR Vaginal Ring 03/17/2017 - 04/15/2017 Provider: ERICA MADERA Diagnosis: Insert for 3 weeks then remove for 1 week Last Documented On 7 8:40AM By ERICA MADERA ; [facility] Medications Administered Includes: Administered Medications in patient's chart No Administered Medications Recorded Results Includes: Results from 07/05/2023 through 07/05/2024 No Results Recorded For Specified Dates History of Present Illness History of Present Illness not supported for this document type No History of Present Illness Recorded Social History Description Last Updated Alcohol use occ 09/25/2021 Last Documented On 2 8:47AM ; [facility] Former smoker 09/25/2021 Last Documented On 2 8:47AM ; [facility] In monogamous relationship 09/25/2021 Last Documented On 2 8:47AM ; [facility] No travel 09/25/2021 Last Documented On 2 8:47AM ; [facility] Non-smoker 09/25/2021 Last Documented On 2 8:47AM ; [facility] Not using drugs 09/25/2021 Last Documented On 2 8:47AM ; [facility] Sexually active with 1 partners in the l ast year 09/25/2021 Last Documented On 2 8:47AM ; [facility] Smoking status : Current everyday smoker 09/25/2021 Last Documented On 2 8:47AM ; [facility] Social history changed 09/25/2021 Last Documented On 2 8:47AM ; [facility] Stopped smoking years ago 1 1/2 months a go. Stopped 09/25/2021 Last Documented On 2 8:47AM ; [facility] Procedures and Surgical History Surgical History Last Updated History of cholecystectomy -07-21, [facility] 0 09/25/2021 Last Documented On 2 8:47AM ; [facility] History of surgery cholecystectomy 09/25 Last Documented On 2 8:47AM ; [facility] Medical History Includes: Medical History in patient's chart Description Last Updated 1 09/25/2021 Last Documented On 2 8:47AM ; [facility] History of Abnormal Pap Smear 09/25/2021 Last Documented On 2 8:47AM ; [facility] History of breast disorders MGM breast c ancer 09/25/2021 Last Documented On 2 8:47AM ; [facility] 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 09/25/2021 Last Documented On 2 8:47AM ; [facility] History of heart disease PGF PGM MGF MGM ; FOB's dad PGF 09/25/2021 Last Documented On 2 8:47AM ; [facility] History of Pap smear done 03/18/2018 Last Documented On 2 8:47AM ; [facility] Last pap smear date 04/10/2021 2 Last Documented On 2 8:47AM ; [facility] LMP: 04/20/2021 09/25/2021 Last Documented On 2 8:47AM ; [facility] No exposure to a contagious disease 08/30 Last Documented On 2 8:47AM ; [facility] No recent change in medical history 08/30 Last Documented On 2 8:47AM ; [facility] Not using contraception 09/25/2021 Last Documented On 2 8:47AM ; [facility] Para 0 09/25/2021 Last Documented On 2 8:47AM ; [facility] Result: normal 09/25/2021 Last Documented On 2 8:47AM ; [facility] Sexually active 09/25/2021 Last Documented On 2 8:47AM ; [facility] Family History Includes: Family History in patient's chart Description Last Updated Maternal aunt's history of hypertension mgf 04/06/2019 Last Documented On 9 9:03AM ; [facility] Maternal grandmother's history of family history of heart disease mgm.mgf 04/06/2019 Last Documented On 9 9:03AM ; [facility] Maternal grandmother's history of malign ant female breast neoplasm mgm 04/06/2019 Last Documented On 9 9:03AM ; [facility] Paternal history of diabetes mellitus fa ther and all his side 04/06/2019 Last Documented On 9 9:03AM ; [facility] Family history unchanged 04/06/2019 Last Documented On 9 9:03AM ; [facility] Review of Systems Review of Systems not supported for this document type No Review of Systems Recorded Mental Status No Mental Status Recorded Functional Status No Functional Status Recorded Physical Exam Physical Exam not supported for this document type No Physical Exam Recorded Immunizations Includes: Immunizations in patient's chart Vaccine Dose # Date Site Reaction(s) Status Source Influenza (Quadrivalent) PF 0.5ml 1 06/20/2021 Right Deltoid Complete (Administered) [facility] Last Documented On 2 11:28AM ; [facility] Influenza (Quadrivalent)36 mo.& older PF 0.5ml (SD) 1 03/18/2018 Left Arm Complete (Administered) [facility] Last Documented On 8 10:29AM ; [facility] Allergies Includes: Active, inactive, and resolved Allergies No Known Allergies Insurance Includes: Active Insurance Policies Plan Name Member ID Group # Subscriber Relationship Effect jomar Dates 1 - [facility] [id number] DANO PAK Self Clinical Notes Includes: Signed Clinical Notes starting from 06/19/2022 No Clinical Notes Recorded
--- OUTSIDE RECORDS SUMMARY | 2024-07-05 08:18 | XMS_ITS | Clinical Summary ---
Author Organization [facility] Address [address] [place] [address] Phone Care Team Providers Care Boiler Setter Name Role Phone PADMINI CHO MD Primary Care Provider [phone] Reason for Visit and Chief Complaint RETURN OB EXAM Problems Includes: Problems addressed during this encounter and other active Problems Current Visit Onset Date Resolved Date Provider Conditio n Status History of Abnormal Pap Smear 07/15/2021 Unknown ERICA RITCHIE WHNP-BC Resolved Last Documented On 03/04/2022 9:13AM ; [facility] Note: was Closed. History of Breast Disorders 07/15/2021 Unknown ERICAKAITLIN RITCHIE WHNP-BC Resolved Last Documented On 03/04/2022 9:13AM ; [facility] Note: was Closed. History of Congenital Abnormality of Uterus 07/15/2021 Unknown ERICAKAITLIN RITCHIE WHNP-BC Resolved Last Documented On 03/04/2022 9:13AM ; [facility] Note: was Closed. History of Heart Disease 07/15/2021 Unknown ERICAKAITLIN RITCHIE WHNP-BC Resolved Last Documented On 03/04/2022 9:13AM ; [facility] Note: was Closed. Past Visits Onset Date Resolved Date Provider Condition Status History of Diabetes Mellitus 07/15/2021 Unknown ERICAKAITLIN RITCHIE WHNP-BC Resolved Last Documented On 03/04/2022 9:13AM ; [facility] Note: was Closed. History of Essential Hypertension 07/15/2021 Unknown ERICAKAITLIN RITCHIE WHNP-BC Resolved Last Documented On 03/04/2022 9:13AM ; [facility] Note: was Closed. Reported Previous Std 07/15/2021 Unknown ERICAKAITLIN RITCHIE WHNP-BC Resolved Last Documented On 03/04/2022 9:13AM ; [facility] Note: was Closed. Respiratory Disorders 07/15/2021 Unknown ERICA RITCHIE NP-BC Resolved Last Documented On 03/04/2022 9:13AM ; [facility] Note: was Closed. Herpes Simplex 03/17/2017 ERICA RITCHIE NP-BC Active Last Documented On 03/17/2017 10:53AM ; [facility] Note: H/O type I Plan of Treatment - Clinical summary provided to patient - Last Documented On 09/25/2021 8:47AM ; [facility] Assessments Includes: Assessments from this encounter Findings - Routine checkup (6 - 42 wk) - Last Documented On 09/25/2021 8:47AM ; [facility] Medical Equipment - Implanted Devices Includes: Current Devices No Medical Equipment Recorded Medications Includes: Medications discussed during this encounter and other current Medications Current Medications (continue as prescribed) [facility] Omeprazole 20 MG Oral Ta blet Delayed Release Disintegrating 06/20/2021 Provider: Diagnosis: Last Documented On 06/20/2021 11:06AM By Teresa Anguiano MA ; [facility] GNP 28-0.8 MG Oral Tablet 06/20/2021 Provid er: Diagnosis: Last Documented On 06/20/2021 11:06AM By Teresa Anguiano MA ; [facility] Medications Administered Includes: Administered Medications from this encounter No Administered Medications Recorded Vital Signs Includes: Vital Signs from this encounter Vital Name 09/25/2021 08:35A Blood Pressure Sitting R 126/70 BP Cuff Size Regular Temp-Temporal 97.3 Weight (lb) 179 Last Documented: On 09/25/2021 8:35AM ; [facility] Results Includes: Results discussed during this encounter No Results Recorded For Specified Dates History of Present Illness Includes: History of Present Illness from this encounter No History of Present Illness Recorded Social History Description Last Updated Alcohol use occ 09/25/2021 Last Documented On 2 8:47AM ; [facility] Former smoker 09/25/2021 Last Documented On 2 8:47AM ; [facility] In monogamous relationship 09/25/2021 Last Documented On 2 8:47AM ; [facility] No travel 09/25/2021 Last Documented On 2 8:47AM ; [facility] Non-smoker 09/25/2021 Last Documented On 2 8:47AM ; [facility] Not using drugs 09/25/2021 Last Documented On 2 8:47AM ; [facility] Sexually active with 1 partners in the l ast year 09/25/2021 Last Documented On 2 8:47AM ; [facility] Smoking status : Current everyday smoker 09/25/2021 Last Documented On 2 8:47AM ; [facility] Social history changed 09/25/2021 Last Documented On 2 8:47AM ; [facility] Stopped smoking years ago 1 1/2 months a go. Stopped 09/25/2021 Last Documented On 2 8:47AM ; [facility] Procedures and Surgical History Surgical History Last Updated History of cholecystectomy 08-30-20, [facility] 0 09/25/2021 Last Documented On 2 8:47AM ; [facility] History of surgery cholecystectomy 09/25 Last Documented On 2 8:47AM ; [facility] Medical History Includes: Medical History addressed during this encounter Description Last Updated 1 09/25/2021 Last Documented On 2 8:47AM ; [facility] History of Abnormal Pap Smear 09/25/2021 Last Documented On 2 8:47AM ; [facility] History of breast disorders MGM breast c ancer 09/25/2021 Last Documented On 2 8:47AM ; [facility] 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 09/25/2021 Last Documented On 2 8:47AM ; [facility] History of heart disease PGF PGM MGF MGM ; FOB's dad PGF 09/25/2021 Last Documented On 2 8:47AM ; [facility] History of Pap smear done 03/18/2018 Last Documented On 2 8:47AM ; [facility] Last pap smear date 04/10/2021 2 Last Documented On 2 8:47AM ; [facility] LMP: 04/20/2021 09/25/2021 Last Documented On 2 8:47AM ; [facility] No exposure to a contagious disease 08/30 Last Documented On 2 8:47AM ; [facility] No recent change in medical history 08/30 Last Documented On 2 8:47AM ; [facility] Not using contraception 09/25/2021 Last Documented On 2 8:47AM ; [facility] Para 0 09/25/2021 Last Documented On 2 8:47AM ; [facility] Result: normal 09/25/2021 Last Documented On 2 8:47AM ; [facility] Sexually active 09/25/2021 Last Documented On 2 8:47AM ; [facility] Family History Includes: Family History addressed during [...] Check-Out Time Diagnosis RETURN OB EXAM [facility] 09/26/19 22 8:24AM 8:45AM Routine Checkup (6 - 42 Wk) Insurance Includes: Active Insurance Policies Plan Name Member ID Group # Subscriber Relationship Effect jomar Dates 1 - [facility] [id number] DANO PAK Self Clinical Notes Includes: Clinical Notes from this encounter No Clinical Notes Recorded
--- OUTSIDE RECORDS SUMMARY | 2024-07-05 08:18 | XMS_ITS | Referral Summary ---
Author Organization [facility] Address [address] [place] [address] Care Team Providers Care Forms Examiner Name Role Phone Edson Bello MD Unavailable [phone] Martha Cuello NP Primary Care Provider Allergies No known active allergies Medications cetirizine (ZyrTEC) 10 mg tablet Take 1 tablet (10 mg total) by mouth daily Active PreviDent 5000 Booster Plus 1.1 % paste 4 Active etonogestreL-et hinyl estradioL (NUVARING, ELURYNG) 0.12-0.015 mg/24 hr vaginal ring INSERT 1 RING VAGINALLY AND LEAVE IN PLACE FOR 3 CONSECUTIVE WEEKS, THEN REMOVE FOR 1 WEEK 3 each 4 Active drospirenone, contraceptive, (Slynd) tablet tablet Take 1 each (4 mg total) by mouth daily 28 tablet 11 4 Active Active Problems Problem Noted Date Diagnosed Date Annual physical exam 06/30/2024 Tonsillitis 08/31/2023 Assessment & Plan (08/31/2023 11:28 AM CDT): Start on amoxicillin 500 mg t.i.d. for 10 days. Increase fluids. Tylenol or ibuprofen p.r.n.. Saline gargles. Negative for strep. Follow-up if symptoms not resolving Enlarged thyroid gland 08/31/2023 Assessment & Plan (08/31/2023 11:29 AM CDT): No palpable nodules. Patient reports she has already had an ultrasound and labs ordered by her glass designer for this and only abnormality is that the thyroid is enlarged. BMI 29.0-29.9,adult 07/01/2023 Assessment & Plan (08/31/2023 11:27 AM CDT): BMI 29.01. Discussed healthy diet and routine exercise. Encourage weight loss Assessment & Plan (07/01/2023 11:07 AM EMPLOYMENT TRAINER): BMI 29.13 Eats a healthy diet in moderation Exercises routinely Weight loss recommended Immunization due 07/01/2023 Assessment & Plan (07/01/2023 11:10 AM EMPLOYMENT TRAINER): Influenza vaccine given Primary hypertension 07/15/2021 Overview (06/17/2023): Note: MGF Assessment & Plan (07/01/2023 11:07 AM EMPLOYMENT TRAINER): Stable. Blood pressure is 118/86 today Had elevated blood pressure while she was Limits the salt in her diet No current medications, managed with lifestyle modifications Labs ordered today Gallstones 08/20/2020 Herpes simplex 03/17/2017 Overview (06/17/2023): Note: H/O type I Resolved Problems Problem Noted Date Diagnosed Date Resolved Date Screening for deficiency anemia 07/01/2023 08/31/2023 Screening for diabetes mellitus 07/01/2023 08/31/2023 Screening for lipid disorders 07/01/2023 08/31/2023 40 weeks gestation of 01/27/2022 03/20/2022 Overview (01/29/2022): Added automatically from request for surgery [id number] Diabetes mellitus 07/15/2021 08/31/2023 Overview (06/17/2023): Note: PGM PGF MGF Assessment & Plan (07/01/2023 11:13 AM EMPLOYMENT TRAINER): She reports an abnormal 1-hour GTT with gestational testing, a 3-hour GTT was then done that was negative Her last labs did not indicate any abnormal glucose Heart disease 07/15/2021 08/31/2023 Overview (06/17/2023): Note: PGF PGM MGF MGM; FOB's dad PGF Immunizations Name Administration Dates Next Due Influenza, Quadrivalent, Gissell l Culture-based MDCK, Preservative Free, Antibiotic Free, Intramuscular 03/20/2022 Influenza, Quadrivalent, Spl it, Preservative Free, Intramuscular 07/01/2023,06/20/2021,03/18/2018 Influenza, Trivalent, Cell Culture-based MDCK, Preservative Free, Antibiotic Free, Intramuscular 03/20/2022 Influenza, Unspecified 06/29/2024(Deferr ed: Patient Refused),03/06/2024(Deferred: Patient Refused) Moderna Sars-cov-2 Bivalent Vaccine 50 Mcg/0.5 mL (12+ YRS)-Blue/Persaud 03/20/2022 Tdap 12/19/2021 Social History Tobacco Use Types Packs/Day Years Used Date Smoking Tobacco: Former Cigarettes Q uit: 2020 Vaping Smokeless Tobacco: Never Tobacco Cessation:Counseling Given: Not Answered Comments:2017 tobacco, 2020 ecig. Alcohol Use Standard Drinks/Week Comments Yes 0 (1 standard drink = 0.6 oz pur e alcohol) occaisonal AUDIT-C Answer Date Recorded Q1: How often do you have a drink containing alc ohol? Monthly or less 07/01/2023 Q2: How many drinks containi ng alcohol do you have on a typical day when you are drinking? 1 or 2 07/01/2023 Q3: How often do you have si x or more drinks on one occasion? Never 07/01/2023 PHQ-2 Answer Date Recorded PHQ-2 Total Score (If total score is 3 or more points, staff should administer the PHQ-9) 0 11/01/2023 [place] Depression Scale Answer Date Recorded Last EPDS Total Score Not on file 03/13/2022 The thought of harming myself has occurred to me . Never 03/13/2022 Comments No Sex and Gender Information Value Date Recorded Sex Assigned at Not on file Legal Sex Female 2:42 PM CDT Gender Identity Not on file Sexual Orientation Not on file Last Filed Vital Signs Vital Sign Reading Time Taken Comments Blood Pressure 118/72 11/01/2023 2:32 PM CDT Pulse 76 08/31/2023 8:21 AM CDT Temperature 36.6 ??C (97.8 ??F) 08/31/2023 8:21 AM CD T Respiratory Rate 18 06/17/2023 9:55 AM EMPLOYMENT TRAINER Oxygen Saturation 98% 08/31/2023 8:21 AM CDT Inhaled Oxygen Concentration - - Weight 77.6 kg (171 lb) 11/01/2023 2:32 PM CDT Height 162.6 cm (5' 4 ) 11/01/2023 2:32 PM CDT Body Mass Index 29.35 11/01/2023 2:32 PM CDT Plan of Treatment Not on file Procedures Procedure Name Priority Date/Time Associated Diagnosis Comments PAP, REFLEX HPV Routine 11/01/2023 3:23 PM CDT Well woman exam from Last 3 Months or Most Recently Relevant to Health Maintenance Results * Pap, reflex HPV (11/01/2023 3:23 PM CDT) Clinical indication Comment [facility] - 01 Comment: NEGATIVE FOR INTRAEPITHELIAL LESION OR MALIGNANCY. THIS SPECIMEN WAS RESCREENED PART OF OUR JAR FILLER PROGRAM. Specimen adequacy: Comment [facility] - 01 Comment: Satisfactory for evaluation. ??Endocervical and/or squamous metaplastic cells (endocervical component) are present. Clinician provided ICD10 Comment [facility] - 01 Comment:Z01.419 Performed by Comment [facility] - 01 Comment:Navin Vila, Ships Equipment Engineer (ASCP) QC reviewed by Comment [facility] - 01 Comment:[facility] Ships Equipment Engineer (ASCP) . . [facility] - 01 Note: Comment [facility] - 01 Comment: The Pap smear is a screening test designed to aid in the detection of premalignant and malignant conditions of the uterine cervix. ??It is not a diagnostic procedure and should not be used as the sole means of detecting cervical cancer. ??Both false-positive and false-negative reports do occur. Test methodology Comment [facility] - 01 Comment: This liquid based ThinPrep(R) pap test was screened with the use of an image guided system. . Comment [facility] - 01 Comment: The HPV DNA reflex criteria were not met with this specimen result therefore, no HPV testing was performed. Thin prep 11/01/2023 3:23 PM CDT 11/02/2023 Narrative [facility] - 11/04/2023 3:10 PM CDT Performed at: ??01 - [facility] [address] [place], [place] ??[id number] Line Controller: Halina Gee MD, Phone: ??[phone] Specimen Comment: No. of containers..01 ThinPrep Vial us Edson Bello MD LAB CYTOLOGY ORDERABLES Fi nal Result [facility] - 01 from Last 3 Months or Most Recently Relevant to Health Maintenance Insurance [facility] CHOICE PLUS Advance Directives For more information, please contact: [phone] * Full Code (Latest Code Status on File) Date Activated Date Inactivated Comments 01/29/2022 3:13 PM 01/31/2022 4:43 PM * Full Code Date Activated Date Inactivated Comments 01/27/2022 6:04 PM 01/29/2022 3:13 PM Full CPR in c ase of cardiopulmonary arrest Care Teams Forms Examiner Relationship Specialty Start Date End Date Martha Cuello NP [address] [place] [address] PCP - General Bankruptcy Manager 07/01/23 Edson Bello MD [address] [place] [address] [address] [place] [address] Electric Motor Tester Assembler Obstetrics and Gynecology 01/31/22
--- OUTSIDE RECORDS SUMMARY | 2024-07-05 08:18 | XMS_ITS ---
Care Plan - [facility] Created on: July 05, 2024 DANO PAK : 1990 Sex: Female Author Organization [facility] Address [address] [place] [address] Phone Care Team Providers Care Vocational Instructor Name Role Phone MARQUIS HELLER, PADMINI Melgar Primary Care Provider [phone]
--- OUTSIDE RECORDS SUMMARY | 2024-07-05 08:19 | XMS_ITS | Clinical Summary ---
Author Organization [facility] Address [address] [place] [address] Care Team Providers Care Bonderite Operator Name Role Phone Unavailable Primary Care Provider Unavailabl e Source Comments [facility],non-owned Affiliates and Associated Physician Practices is amultiple site organization consisting of ambulatory clinics and hospital sitesin [place], [place], [place] and [place]. This disclosure is being madepursuant to the Care Everywhere program and may not contain all information available regarding this patient. Last updated 18.[facility] Allergies No known active allergies Social History Tobacco Use Types Packs/Day Years Used Date Smoking Tobacco: Never Assessed Sex and Gender Information Value Date Recorded Sex Assigned at Not on file Gender Identity Not on file Sexual Orientation Not on file Plan of Treatment Health Maintenance Due Date Last Done Comments PAP SMEAR 1990 HIV SCREENING 2005 HEPATITIS C SCREENING 07/30/2008 DTAP/TDAP/TD VACCINES (1 - Tdap) 2009 HEPATITIS B VACCINE (1 of 3 - 19+ 3-dose series) 2009 COVID-19 VACCINE ( - 2023-2 5 season) 2024 04/26/2021, 07/02/2020, 06/07/2020 INFLUENZA VACCINE (#1) 2024 DEPRESSION SCREENING 05/31/2024 ZOSTER VACCINE (1 of 2) 2040 HIB VACCINE Aged Out No longer eligi ble based on patient's age to complete this topic HPV VACCINE Aged Out No longer eligi ble based on patient's age to complete this topic MENINGOCOCCAL (Group B) VACCINE Aged Out No longer eligible b ased on patient's age to complete this topic MENINGOCOCCAL VACCINE Aged Out No christina yvonne eligible based on patient's age to complete this topic PNEUMOCOCCAL VACCINE Aged Out No long er eligible based on patient's age to complete this topic STEPHANI PAK Personal/Family [address] [place] [id number]
--- OUTSIDE RECORDS SUMMARY | 2024-07-05 08:19 | XMS_ITS | Patient Health Summary ---
Author Organization [facility] Address [address] [place] [address] Care Team Providers Care Middle School Professional Name Role Phone Unavailable Primary Care Provider Unavailabl e Note from [facility],non-owned Affiliates and Associated Physician Practices is amultiple site organization consisting of ambulatory clinics and hospital sitesin [place], [place], [place] and [place]. This disclosure is being madepursuant to the Care Everywhere program and may not contain all information available regarding this patient. Last updated 18.[facility] [employer] Allergies No known active allergies Social History Tobacco Use Types Packs/Day Years Used Date Smoking Tobacco: Never Assessed Sex and Gender Information Value Date Recorded Sex Assigned at Not on file Gender Identity Not on file Sexual Orientation Not on file Procedures * SONOGRAM - COMPLETE(Performed 09/09/2021) Performed for Abnormal quad screen, 20 weeks gestation of (HCC) Results * SONOGRAM - COMPLETE (09/09/2021 8:45 AM CDT) Anatomical Region Laterality Modality Other 09/09/2021 8:45 AM CDT Narrative 09/09/2021 10:59 AM CDT ? [facility] ?PHONE: ??FAX: Pat. Name: ?STEPHANI PAK. No: ?[id number] Study Date: ?? 09/09/2021 ??8:45am , Age: ? 1990, 31 Pregnancies: ?? 1 Height: ? 65 in Weight: ? 168 lb LMP: ?04/20/2021 GA by LMP: ?20w2d GA by US: ? 20w5d ?? GALINDO: 01/22/2022 GA Selected: ??20w2d (LMP) GALINDO: ?01/25/2022 Referring MD: Osvaldo Oshea MD Dampener Operator: ??Kait Birmingham RDMS CPT4: ? 52278,02298 BMI: ?27.95 Hist/Ind: ? Anatomy Screen ?Abnormal Penta Screen with LR NIPT MEASUREMENTS & AGE ? GROWTH EVALUATION Measurement ??GA ? Range ? Srce %for GA Ratios ----- ---- ------- BPD ??5.0 cm 21w0d ([id number]) Hadl BPD 78% FL/BPD 0.66 HC ??18.0 cm 20w3d (09l7t-03z3o) Hadl HC ??44% FL/AC ??0.20 AC ??16.4 cm 21w3d (95b0q-29g0x) Hadl AC ??80% HC/AC ??1.09 (1.06 - 1.24) FL ?? 3.3 cm 20w1d (04t1d-30y5b) Hadl FL ??37% CI ? 0.79 (0.70 - 0.86) HL ?? 3.2 cm 20w4d (31r9r-62q6w) Deshaun HL ??54% Cere 2.1 cm 20w1d (60j8f-79y1m) Hill Cere48% GA for sonogram 20w5d (77y0h-31n0n) ?? Weight Estimate: based on (BPD,HC,AC,FL) Avg ?Weight: 381 gm (326-437gm) Hadloc ? : 0lbs, 13oz ? Normal: 351 gm (263-440gm) Hadloc ? Wt% ? 75% for 20w2d Cervix: ??Length: 5.1 cm ??Approach: transvaginal Heart Rate: 157 bpm Amniotic Fluid Index: 05.8cm (Deepest Pocket) EVAL, PLACENTA Presentation: cephalic Umbilical Cord: 3 Vessels Placenta: anterior Previa: no previa seen Heart Rate: 157 bpm Amniotic Fluid Volume: normal Anatomy!Normal!Abnormal!Suboptimal!Prev. Seen!Comments Cranium ?! ?? x ??! ?! ?! ?! Mdl (CSP/Thal! ?? x ??! ?! ?! ?! Ventricles ?? ! ?? x ??! ?! ?! ?! Choroid Plexu! ?? x ??! ?! ?! ?! Cerebellum ?? ! ?? x ??! ?! ?! ?! Cerebellar Ve! ?? x ??! ?! ?! ?! Cisterna M. ??! ?? x ??! ?! ?! ?! Nuchal Fold ??! ?? x ??! ?! ?! ?! Orbits ? ! ?? x ??! ?! ?! ?! Profile ?! ?? x ??! ?! ?! ?! Nasal Bone ?? ! ?? x ??! ?! ?! ?! Lip ?! ?? x ??! ?! ?! ?! Maxilla ?! ?? x ??! ?! ?! ?! Mandible ? ! ?? x ??! ?! ?! ?! Neck ? ! ?? x ??! ?! ?! ?! Spine ?! ?? x ??! ?! ?! ?! Lungs ?! ?? x ??! ?! ?! ?! 4 Chamber Hea! ?? x ??! ?! ?! ?! LVOT ? ! ?? x ??! ?! ?! ?! RVOT ? ! ?? x ??! ?! ?! ?! 3 Vessel View! ?? x ??! ?! ?! ?! 3 Vessel Trac! ?? x ??! ?! ?! ?! Cross-over ?? ! ?? x ??! ?! ?! ?! Ductal Arch ??! ?? x ??! ?! ?! ?! Aortic Arch ??! ?? x ??! ?! ?! ?! Caval View ?? ! ?? x ??! ?! ?! ?! Situs ?! ?? x ??! ?! ?! ?! Diaphragm ?! ?? x ??! ?! ?! ?! Stomach ?! ?? x ??! ?! ?! ?! Liver ?! ?? x ??! ?! ?! ?! Bowel ?! ?? x ??! ?! ?! ?! Kidneys ?! ?? x ??! ?! ?! ?! Bladder ?! ?? x ??! ?! ?! ?! 3 Vessel Cord! ?? x ??! ?! ?! ?! Cord In! ?? x ??! ?! ?! ?! Upper Extremi! ?? x ??! ?! ?! ?! Hands ?! ?? x ??! ?! ?! ?! Lower Extremi! ?? x ??! ?! ?! ?! Feet ? ! ?? x ??! ?! ?! ?! External Karen! ?! ?! ?! ?!Demonstrated, ?family does not ?wish to know ?gender Placental Cor! ?? x ??! ?! ?! ?! CLINICAL SUMMARY Study Number: 1 ?? A single fetus is seen in cephalic presentation. ??The measurements today are consistent with appropriate size for the GALINDO provided. ??The GALINDO is based on LMP and a prior ultrasound. ??The amniotic fluid volume is within normal limits. ?? IMPRESSION: Single, live, intrauterine at 20w2d ?? Appropriate size Amniotic fluid volume: within normal limits ?? No major malformations were seen within the limitations of ultrasound Reassuring transvaginal cervical length ?? RECOMMEND: Follow-up ultrasound as clinically indicated Thank you for allowing us the opportunity to care for your patient. ?? Edward Sidhu MD <Electronic Signature> ??09/09/2021 10:59am Revised Osvaldo Oshea MD [facility] ORDERABLES
--- OUTSIDE RECORDS SUMMARY | 2024-07-05 08:19 | XMS_ITS | Clinical Summary ---
Author Organization [facility] Address [address] [place] [address] Care Team Providers Care Netting Weaver Name Role Phone Edson Bello MD Unavailable [phone] Martha Cuello NP Primary Care Provider [phone] Allergies No known active allergies Medications cetirizine [...] an ultrasound and labs ordered by her huc ob for this and only abnormality is that the thyroid is enlarged. BMI 29.0-29.9,adult 07/01/2023 Assessment & Plan (08/31/2023 11:27 AM CDT): BMI 29.01. Discussed healthy diet and routine exercise. Encourage weight loss Assessment & Plan (07/01/2023 11:07 AM MILK AND CREAM GRADER): BMI 29.13 Eats a healthy diet in moderation Exercises routinely Weight loss recommended Immunization due 07/01/2023 Assessment & Plan (07/01/2023 11:10 AM MILK AND CREAM GRADER): Influenza vaccine given Primary hypertension 07/15/2021 Overview (06/17/2023): Note: MGF Assessment & Plan (07/01/2023 11:07 AM MILK AND CREAM GRADER): Stable. Blood pressure is 118/86 today Had [...] (01/29/2022): Added automatically from request for surgery [id number] Diabetes mellitus 07/15/2021 08/31/2023 Overview (06/17/2023): Note: PGM PGF MGF Assessment & Plan (07/01/2023 11:13 AM MILK AND CREAM GRADER): She reports an abnormal 1-hour GTT with [...] Mcg/0.5 mL (12+ YRS)-Blue/Persaud 03/20/2022 Tdap 12/19/2021 Surgical History Surgery Date Site/Laterality Comments CHOLECYSTECTOMY 08/30/2020 Medical History Medical History Date Comments Heart disease Note: PGF PGM MG F MGM; FOB's dad PGF Family History Medical History Relation Name Comments Diabetes Maternal Grandfather Heart disease Maternal Grandfather Hypertension Maternal Grandfather Breast cancer Maternal Grandmother Cancer Maternal Grandmother Heart disease Maternal Grandmother Diabetes Paternal Grandfather Diabetes Paternal Grandmother Heart attack Paternal Grandmother Colon cancer Neg Hx Ovarian cancer Neg Hx Uterine cancer Neg Hx Relation Name Status Comments Maternal Grandfather Maternal Grandmother Paternal Grandfather Paternal Grandmother Social History Tobacco Use Types Packs/Day Years [...] staff should administer the PHQ-9) 0 11/01/2023 [place] Depression Scale Answer Date Recorded Last EPDS Total Score Not on file 03/13/2022 The thought of harming myself has occurred to me . Never 03/13/2022 Comments No Sex and Gender Information Value Date Recorded Sex Assigned at Not on file Legal Sex Female 2:42 PM CDT Gender Identity Not on file Sexual Orientation Not on file Obstetrics History Para Term AB IAB SAB Ectopic Multiple Livin g Live Births 1 1 1 0 0 0 0 0 0 1 1 Date Outcome GA Total Labor Labor/2nd/3rd Weight Sex Type Anes PTL Jackie A1 A5 Name Clin 2021 Term 40w 4d 17h 07m 12h 20m/4h 46m/0h 01m 3.798 kg (8 lb 6 oz) F CS-LT ranv Epidur al N Livin g 8 9 PASHA, DERECK Hurley , Erik ramirez MD Complications:Failure to Pro gabrielle in Second Stage Delivery Location:[facility] ([facility] L AND D PROCEDURE) Last Filed Vital Signs Vital Sign Reading Time Taken Comments Blood Pressure 118/72 11/01/2023 2:32 PM CDT Pulse 76 08/31/2023 8:21 AM CDT Temperature 36.6 ??C (97.8 ??F) 08/31/2023 8:21 AM CD T Respiratory Rate 18 06/17/2023 9:55 AM MILK AND CREAM GRADER Oxygen Saturation 98% 08/31/2023 8:21 AM CDT Inhaled Oxygen Concentration - - Weight 77.6 kg (171 lb) 11/01/2023 2:32 PM CDT Height 162.6 cm (5' 4 ) 11/01/2023 2:32 PM CDT Body Mass Index 29.35 11/01/2023 2:32 PM CDT Plan of Treatment Health Maintenance Due Date Last Done Comments Hepatitis C Screening 1990 Varicella Vaccines (1 of 2 - 13+ 2-dose series) 08/05/2003 Hepatitis B Screening 2008 Covid-19 Vaccine ( season) 2024 03/20/2022, 04/26/2021, 07/02/2020, Additional history exists Influenza Vaccine (#1) 2024 4, 03/20/2022, 03/20/2022, Additional history exists Cervical Cancer Screening 10/31/2024 11/01/2023, 07/2022 Depression Screening 10/31/2024 11/01/2023, 07/01/19 24 Regular Well Visit/Exam 18-64 10/31/2024 11/01/2023, 09/29/2022 DTaP/Tdap/Td Vaccine (2 - Td or Tdap) 12/20/2031 12/19/2021 HPV Vaccines Aged Out No longer eligi ble based on patient's age to complete this topic Pneumococcal vaccine <65 Aged Out No longer eligible based on patient's age to complete this topic Procedures Procedure Name Priority Date/Time Associated Diagnosis Comments PAP, REFLEX HPV Routine 11/01/2023 3:23 PM CDT Well woman exam from Last 3 Months or Most Recently Relevant to Health Maintenance Results * Pap, reflex HPV (11/01/2023 3:23 PM CDT) Clinical indication Comment [facility] - 01 Comment: NEGATIVE FOR INTRAEPITHELIAL LESION OR MALIGNANCY. 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 Specimen adequacy: Comment [facility] - 01 Comment: Satisfactory for evaluation. ??Endocervical and/or squamous metaplastic cells (endocervical component) are present. Clinician provided ICD10 Comment [facility] - 01 Comment:Z01.419 Performed by Comment [facility] - 01 Comment:Navin Vila, Supervisor Agency Appointments (ASCP) QC reviewed by Comment [facility] - 01 Comment:Denae Boone pervisory Supervisor Agency Appointments (ASCP) . . [facility] - 01 Note: [...] PM CDT Performed at: ??01 - [facility] [address] Niko Warren W ??[id number] Chip Loft Worker: Halina Gee MD, Phone: ??[phone] Specimen Comment: No. of containers..01 ThinPrep Vial Edson Bello MD LAB CYTOLOGY ORDERABLES Fi nal Result [facility] - 01 from Last 3 Months or Most Recently Relevant to Health Maintenance Insurance [facility] [place] [address] [facility] CHOICE PLUS Advance Directives For more information, please contact: [phone] * Full Code (Latest Code Status on File) Date Activated Date Inactivated Comments 01/29/2022 3:13 PM 01/31/2022 4:43 PM * Full Code Date Activated Date Inactivated Comments 01/27/2022 6:04 PM 01/29/2022 3:13 PM Full CPR in c ase of cardiopulmonary arrest Care Teams Netting Weaver Relationship Specialty Start Date End Date Martha Cuello NP [address] [place] [address] PCP - General Veterinary Science Teacher 07/01/23 Edson Bello MD [address] [place] [address] Valving Machine Operator Obstetrics and Gynecology 01/31/22
--- OUTSIDE RECORDS SUMMARY | 2024-07-05 08:19 | XMS_ITS | Referral Summary ---
Author Organization [facility] Address [address] [place] [address] Care Team Providers Care Traffic Police Officer Name Role Phone Unavailable Primary Care Provider Unavailabl e Source Comments [facility],non-owned Affiliates and Associated Physician Practices is amultiple site organization consisting of ambulatory clinics and hospital sitesin [place], [place], [place] and [place]. This disclosure is being madepursuant to the Care Everywhere program and may not contain all information available regarding this patient. Last updated 18.[facility] [employer] Allergies No known active allergies Social History Tobacco Use Types Packs/Day Years Used Date Smoking Tobacco: Never Assessed Sex and Gender Information Value Date Recorded Sex Assigned at Not on file Gender Identity Not on file Sexual Orientation Not on file Plan of Treatment Not on file STEPHANI PAK Personal/Family 1990 [address] [place] [address]
--- OUTSIDE RECORDS SUMMARY | 2024-07-05 08:19 | XMS_ITS | Clinical Summary ---
Author Organization [facility] Address [address] [place] [address] Phone Care Team Providers Care Chronometer Repairer Name Role Phone Unavailable Primary Care Provider Unavailabl e Allergies No known active allergies Medications NuvaRing 0.12-0.015 MG/24HR RING INSERT 1 RING VAGINALLY FOR 3 WEEKS THEN REMOVE FOR 1 WEEK 05/10/20 20 Active Calcium Glycerophosphate (PRELIEF PO) Take by mouth. Ac tive Multiple Vitamin (MULTI-VITAMIN PO) Take by mouth. Active ondansetron (Zofran) 4 MG Tablet Take 1 Tablet by mouth every 8 hours as needed for Nausea - 1st line. 15 Tablet 08/02/19 21 Active HYDROcodone-acetamin ophen (NORCO) 5-325 MG Tablet Take 1 Tablet by mouth every 8 hours as needed for Moderate or more severe pain. 20 Tablet 08/31/19 21 Active Additional Information Patient not taking.Reported on 06/18/2022 Active Problems Problem Noted Date Diagnosed Date Gallstones 08/20/2020 Immunizations Immunization Administration Dates Next Due Covid-19, Mrna, Lnp-s, Bival ent, Moderna, 50 Mcg or 25 mcg dose 03/20/2022 Covid-19, Mrna, Lnp-s, PF, 1 00 mcg/0.5 mL Dose (Moderna) 07/02/2020,06/07/2020 Influenza Vaccine, MDCK,quadrivalent, pres free 03/20/2022 Influenza Vaccine, Quadrivalent, PF 06/20/2021,1 TDAP Vaccine 12/19/2021 Family History Medical History Relation Name Comments No Known Problems Brother No Known Problems Father Diabetes Maternal Grandfather Hypertension Maternal Grandfather Breast Cancer Maternal Grandmother Pacemaker Maternal Grandmother No Known Problems Mother Diabetes Paternal Grandfather Diabetes Paternal Grandmother Pacemaker Paternal Grandmother No Known Problems Sister 1 No Known Problems Sister 2 Relation Name Status Comments Brother Alive Father Alive Maternal Grandfather Alive Maternal Grandmother Alive Mother Alive Paternal Grandfather Paternal Grandmother Sister 1 Alive Sister 2 Alive Social History Tobacco Use Types Packs/Day Years Used Date Smoking Tobacco: Former Cigarettes Q uit: 05/31/2014 Smokeless Tobacco: Never Tobacco Cessation:Counseling Given: No Alcohol Use Standard Drinks/Week Comments Yes 0 (1 standard drink = 0.6 oz pur e alcohol) Rare PHQ-2 Answer Date Recorded Total Score - Questions 1-9 0 08/2020 Education Answer Date Recorded What is the highest level of school you have completed or the highest degree you have received? 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 Not on file Not on file Not on file Last Filed Vital Signs Vital Sign Reading Time Taken Comments Blood Pressure 108/68 06/18/2022 8:[address] CLERK Pulse 77 06/18/2022 8:[address] CLERK Temperature 36.4 ??C (97.5 ??F) 06/18/2022 8:06 AM CS T Respiratory Rate 18 06/18/2022 8:[address] CLERK Oxygen Saturation 98% 06/18/2022 8:[address] CLERK Inhaled Oxygen Concentration - - Weight 76.1 kg (167 lb 11.2 oz) 06/18/2022 8:[address] CLERK Height 162.6 cm (5' 4 ) 06/18/2022 8:[address] CLERK Body Mass Index 28.79 06/18/2022 8:[address] CLERK Plan of Treatment Health Maintenance Due Date Last Done Comments Hepatitis C Virus (HCV) Screening 1990 Hepatitis B Immunization (1 of 3 - 19+ 3-dose series) 2009 HPV/Cotest 2020 Influenza Immunization (#1) 01/30/202403/01, 06/20/2021, 03/18/2018 SARS-COV-2 Immunization ( season) 2024 03/20/2022, 04/26/2021, 07/02/2020, Additional history exists Cervical Cancer Screening (CCS) 04/10/2024 Pap Smear 04/10/2024 04/10/2021 Respiratory Syncytial Virus (RSV) Immunization (Adult) (1 - 1-dose 75+ series) 2065 DTaP/Tdap/Td Immunization Discontinued 12/19/2021 Meningococcal Immunization (ACWY) Aged Out No longer eligible based on patient's age to complete this topic Pneumococcal Immunization Combined Aged Out No longer eligible based on patient's age to complete this topic Rotavirus Immunization Aged Out No lo nger eligible based on patient's age to complete this topic Insurance [address] ALL SAVERS
[2024-07-05 08:29] LABS: EDSTREPNEGPOS1 Negative (Negative)
[2024-07-05 08:48] LABS: EDCOVIDSCREEN Negative (Negative); EDINFLUASCREEN Negative (Negative); EDINFLUBSCREEN Negative (Negative)
== END 2024-07-05 08:50 | disposition home or self-care (01) ==
PROVIDERS: Emergency Provider Registered Nurse; PCP Nurse Practitioner
DX: J03.90 Acute tonsillitis, unspecified (principal); F17.290 Nicotine dependence, other tobacco product, uncomplicated; Z20.822 Contact with and (suspected) exposure to COVID-19
CPT/HCPCS: 87081; 87426; 87804; 87880; 99213; G0463